=== PATIENT | male | born 1965 | race Caucasian/White ===

== ENCOUNTER 2025-05-27 07:13 | Emergency (ER) | payer BC, SELFPAY ==
--- OUTSIDE RECORDS SUMMARY | 2025-05-27 07:15 | XMS_ITS | Clinical Summary ---
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 Reason: New medication 450 Strip 2 11/21/19 16 Active aspirin (ECOTRIN) 81 mg enteric coated tablet Take 81 mg by mouth once daily with a meal. Active Insulin [place], Disposable, 29 gauge x 1/2Indications:Di abetes mellitus without complication (HC) For administering insulin at home. 200 Each 3 09/01/20 19 Active metFORMIN (GLUCOPHAGE) 500 mg tabletIndications: Diabetes mellitus without complication (HC),Diabetes mellitus without complication (HC) TAKE 3 TABLETS BY MOUTH IN THE MORNING AND 2 TABLETS IN THE EVENING WITH MEALS 450 Tablet 3 02/01/20 23 Active insulin aspart protamine-insulin aspart (NOVOLOG MIX) 100 unit/mL (70-30) penIndications:Sonia betes mellitus without complication (HC),Diabetes mellitus without complication (HC) INJECT 60 UNITS EVERY MORNING WITH BREAKFAST AND 60 UNITS WITH DINNER TDD 140 units 07/23/20 24 Active FreeStyle Angela 3 Plus Sensor for continuous blood glucose monitor (CGM)Indications: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 change every 15 days 6 Each 3 08/26/20 24 Active atorvastatin (LIPITOR) 40 mg tabletIndications: Hyperlipidemia, unspecified hyperlipidemia type TAKE 1 TABLET BY MOUTH EVERY DAY 90 Tablet 2 09/01/20 24 Active metoprolol succinate (TOPROL XL) 100 mg Sustained-Release tabletIndications: Essential hypertension TAKE 1 TABLET(100 MG) BY MOUTH EVERY DAY 90 Tablet 2 09/01/20 24 Active pen tirzepatide (Mounjaro) 10 mg/0.5 mL penIndications:Sonia niki 1.5, managed as type 2 (HC) Inject 10 mg subcutaneous once weekly. 12 Pen 3 02/25/20 25 Active Active Problems Problem Noted Date Diagnosed Date Diabetes mellitus due to und erlying condition with hyperosmolarity without coma, with long-term current use of insulin 07/13/2022 Adenomatous colon polyp 05/14/2019 Overview (05/14/2019): Colonoscopy 05/2019 polyp, repeat in 5 years Obesity, Class II, BMI 35-39.9 03/09/2019 Left flank pain 10/23/2018 Kidney stones 10/23/2018 Left ureteral stone 10/23/2018 Right ureteral stone 10/23/2018 YESSICA (acute kidney injury) 10/23/2018 Myopia 02/18/2007 Angioneurotic edema not elsewhere classified 12/2005 Essential hypertension 03/07/2004 Diabetes mellitus type II, c ontrolled, with no complications Overview (10/20/2006): hga1c, lipids,htn, Hyperlipidemia Immunizations Immunization Administration Dates Next Due COVID-19 vaccine (Moderna 100mcg/0.5mL) PF, MDV 03/09/2021,02/10/2021 COVID-19 vaccine (Moderna 50mcg/0.5mL) 12YO+ BIVALENT PF, MDV 10/01/2022 COVID-19 vaccine (Moderna Melvin petra 50mcg/0.25mL) PF, MDV 09/14/2021 Influenza A (H1N1), Inactivated 10/07/2009 Influenza A (H1N1), Inactiva michael (Age >=3 Years) 10/07/2009 Influenza, IIV3 (Age 6-35 mos) 08/20/2011 Influenza, IIV3 (Age >=3 years) 08/20/20 12,08/20/2011,2010,2008,10/09/2007 Influenza, IIV4 08/02/2021, 0,07/02/2018,2016,08/19/2015,09/23/2014 Influenza, RIV3 (Age =>18 Years) 10/11/2016 Influenza,CCIIV4 PRESERV FREE 09/03/2019 Measles 02/15/1977,01/27/1973 Pneumococcal Poly,23-Valent (Pneumovax) 11/05/2008 Polio Virus, Unspecified 07/12/1980 Rubella 01/27/1973 Td (Age >=7 Years) 03/09/2003 Tdap 08/04/2012 Family History Medical History Relation Name Comments Diabetes Father Diabetes Maternal Grandfather Cancer-breast Mother Genetic Other father - HTN, D M2~brother - DM~no CAD, no CA Diabetes Paternal Grandfather Diabetes Paternal Grandmother Relation Name Status Comments Father Maternal Grandfather Mother Other Paternal Grandfather Paternal Grandmother Social History Tobacco Use Types Packs/Day Years Used Date Smoking Tobacco: Never Smokeless Tobacco: Never Tobacco Cessation:Counseling Given: Yes Alcohol Use Standard Drinks/Week Comments Yes 4 (1 standard drink = 0.6 oz pur e alcohol) Alcoholic Drinks/day: PHQ-2 Answer Date Recorded PHQ-2 TOTAL SCORE 0 11/30/2020 Financial Resource Strain Answer Date R ecorded Difficulty of Paying Living Expenses Not on file 10/27/2021 Difficulty of Paying Living Expenses Not on file 10/27/2021 Sex and Gender Information Value Date Recorded Sex Assigned at Not on file Legal Sex Male 5:22 AM 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 Gender Identity Not on file Sexual Orientation Not on file 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 Not on file Not on file Not on fi le Obstetrics History Last Filed Vital Signs Vital Sign Reading Time Taken Comments Blood Pressure 124/80 02/24/2025 2:59 PM CDT Pulse 68 02/24/2025 2:59 PM CDT Temperature 37.8 C (100 F) 07/13/2022 1:53 PM CDT Respiratory Rate 16 02/24/2025 2:59 PM CDT Oxygen Saturation 96% 07/13/2022 1:53 PM CDT Inhaled Oxygen Concentration - - Weight 143.8 kg (317 lb) 02/24/2025 2:59 PM CDT Height 196.9 cm (6' 5.5) 07/13/2022 1:53 PM CDT Body Mass Index 37.11 07/13/2022 1:53 PM CDT Plan of Treatment Upcoming Encounters Date Type Department Care Team (Late st Contact Info) Description 06/22/2025 1:10 PM CDT Office Visit [facility] [address] [place] [address] Mack Blackmon MD [address] [place] [address] Health Maintenance Due Date Last Done Comments HIV for age 15-65 1980 Hepatitis C screening for ag e 18-79 1983 Hepatitis B series for 19+ ( 1 of 3 - 19+ 3-dose series) 1984 Pneumococcal series for age 50+ (2 of 2 - PCV) 11/05/2009 11/05/2008 Zoster (shingles) series for age 50+ (1 of 2) 2015 Depression screening for age 12+ 11/30/2021 11/30/2020, 07/02/2018, 04/10/2016 Tetanus booster 08/04/2022 08/04/2012, 03/09/2003 BMI (ht and wt on same day) for age 18+ 07/13/2023 07/13/2022, 03/09/2019, 10/30/2018, Additional history exists Lipids for age 45-75 07/31/2023 07/31/2018, 06/23/2015, 06/23/2015, Additional history exists Colonoscopy through age 75 05/13/202405/13, 05/13/2019, 05/13/2019 COVID-19 vaccine series ( season) 2024 10/01/2022, 09/14/2021, 03/09/2021, Additional history exists Influenza Vaccine (#1) 2025 , 09/23/2020, 09/03/2019, Additional history exists Medical Devices Implanted Type Area National Sales Trainer Device Identifier Shelf Expiration Date Model / Serial / Lot Stent Uret [id number] Contour - [id number] Implanted:Qty: 1 on 10/25/2018 by Santy Suazo MD at [facility] Left: Ureter [facility] [id number]# / / [id number] Stent Uret [id number] Contour - [id number] Implanted:Qty: 1 on 10/25/2018 by Santy Suazo MD at [facility] Right: Ureter [facility] [id number]# / / [id number] Procedures Procedure Name Priority Date/Time Associated Diagnosis Comments COLONOSCOPY SCREENING Routine 05/13/2019 8:41 AM CDT Encounter for colorectal cancer screening LIPID PANEL W REFLEX MEASURED LDL Routine 07/31/2018 2:41 PM CDT Hyperlipidemia, unspecified hyperlipidemia type from Last 3 Months or Most Recently Relevant to Health Maintenance Results * COLONOSCOPY SCREENING (05/13/2019 8:41 AM CDT) Tyrell Angulo DO GI PROCEDURE ORD Final Resul t * (ABNORMAL) LIPID PANEL W REFLEX MEASURED LDL (07/31/2018 2:41 PM CDT) CHOLESTEROL,TOTAL 158 100 - 199 mg/dL 07/31/2018 7:38 PM CDT [facility] TRIGLYCERIDES 257(H) <150 mg/dL 07/31/2018 7:38 PM CDT [facility] HDL CHOLESTEROL 30(L) >40 mg/dL 8 7:38 PM CDT [facility] NON-HDL CHOLESTEROL 128 <145 mg/dl 07/31/2018 7:38 PM CDT [facility] CHOL/HDL RATIO 5.27(H) <4.50 07/31/2018 7:38 PM CDT [facility] LDL CHOLESTEROL 77 <=130 mg/dL 07/31/2018 7:38 PM CDT [facility] PROVIDER ORDERED STATUS RANDOM 07/31/2018 7:38 PM CDT [facility] Blood BLOOD SPECIMEN / Unknown Venipuncture / Unknown 07/31/2018 2:41 PM CDT 07/31/2018 2:41 PM CDT us Pantera Burns MD CHEMISTRY Final Resu lt [facility] [address] [place] [address], [place] from Last 3 Months or Most Recently Relevant to Health Maintenance Insurance [facility] Advance Directives * Full Code (Latest Code Status on File) Date Activated Date Inactivated Comments 10/23/2018 7:16 PM 10/26/2018 3:20 PM Question Answer Comments Code Status Discussion: Discussed Care Teams Hazmat Technician Relationship Specialty Start Date End Date Pcp, No . PCP - General 03/27/21 Mack Blackmon MD [address] [place] [address] Endocrinology 01/30/23
[2025-05-27 07:25] VITALS: BP 161/107; PULSE 66; RESP 18; TEMP 36.8; O2SAT 99; BMI 38.1
--- NOTE | 2025-05-27 07:50 | ED.GENADULT ---
HPI - General Adult General Chief complaint: Allergic Reaction Stated complaint: allergic reaction on left side of face Time Seen by Provider: 05/27/25 07:50 Source: patient Mode of arrival: ambulatory Limitations: no limitations History of Present Illness HPI narrative: Morning 59-year-old male presents to the emergency department with a 2 day history of rash on the left jaw area, left scalp line and now into the left lip and along the left side of the tongue. No trauma or injury. Wonders if it is related to his to his tirzepitide medication. He has had some GI side effects to this. Mild headache noted, no vision changes or neurological changes. Feels an abnormal sensation in his ear but does believe he is still hearing normally. No difficulty swallowing. No history of immunocompromise status. Has not had the shingles vaccine. Does have a history of angioedema from lisinopril, states his symptoms do not feel similar. No prior history of similar symptoms. Tried taking some Benadryl with no improvement. Past medical history notable for type 2 diabetes, hyperlipidemia, hypertension. Allergy to lisinopril. Nonsmoker. ROS notable for the HEENT symptoms only, otherwise denies other generalized, HEENT, respiratory, GI or skin changes. Related Data Home Medications ?Medication ?Instructions ?Recorded ?Confirmed atorvastatin 40 mg tablet 40 mg PO DAILY 05/27/25 05/27/25 blood-glucose sensor (FreeStyle 05/27/25 05/27/25 Angela 3 Plus Sensor device) insulin aspar prot-insulin aspart subcut 05/27/25 100 unit/mL (70-30) subcutaneous pen metoprolol succinate 100 mg 100 mg PO DAILY 05/27/25 05/27/25 tablet,extended release 24 hr tirzepatide 10 mg/0.5 mL mg subcut 05/27/25 subcutaneous pen injector (Pkunlulu) Previous Rx's ?Medication ?Instructions ?Recorded valacyclovir 1 gram tablet 1,000 mg PO TID Shingles #20 tabs 05/27/25 Allergies Allergy/AdvReac Type Severity Reaction Status Date / Time lisinopril Allergy Severe angioedema Verified 05/27/25 07:21 PFSH PFS Social History Smoking Status: Never smoker How often do you have a drink containing alcohol: never AUDIT-C Alcohol total score: 0 Non-prescribed substance use: denies use Exam Const: Vital Signs, click to edit/add: Vital Signs - 24 hr 05/27/ 07:25 Temperature 98.2 F Pulse Rate [Left P ulse Oximeter] 66 Respiratory Rate 18 Blood Pressure [Ri ght Upper Arm] 161/107 H Pulse Oximetry 99 Oxygen Delivery Me thod Room Air Documenting provider has reviewed patient's vital signs: yes Common normals: no apparent distress General appearance: cooperative HENMT: Common normals: normocephalic and dentition normal Head and scalp: normocephalic Other: Vesicular distribution along left jawline, does not cross midline. Left lower, but not left upper lip are affected as well. Left edge of tongue affected, nothing on the right. Left vehicle mucosa affected as well. Remainder of oropharynx, posterior pharynx not affected. The rash creeps up along the left jawline and just above the left ear, mild swelling of the ear canal but normal TMs. Right side unaffected. Eye not affected. Nose not affected. Normal nares. Eye: Common normals: conjunctivae normal General eye: normal appearance of both eyes Conjunctiva: conjunctiva(e) normal Neck & C-Spine: Common normals: full ROM, no lymphadenopathy and no meningeal signs General: normal visual inspection Resp: Common normals: normal respiratory effort, no use of accessory muscles and clear to auscultation bilaterally Effort & inspection: able to speak in complete sentences Auscultation: clear to auscultation bilaterally Cardio: Common normals: regular rate, regular rhythm, S1 normal heart sound, S2 normal heart sound and no murmurs Rate: regular rate Rhythm: regular rhythm Heart sounds: S1 normal and S2 normal Neuro: Meningeal signs: no meningeal signs Psych: Common normals: speech normal Activity/motor behavior: appropriate eye contact Speech: normal speech Mood and affect: euthymic mood Insight: insight good Judgement: judgment good Skin: Narrative: This ocular rash on the left jawline, oral cavity and small portion of the scalp as described above. No other affected areas Course Course ED Course: 59-year-old male with painful rash on left jawline, consistent with classical V3 branch of trigeminal nerve distribution. No ocular involvement. Classic for shingles. Allergic reaction, viral stomatitis, angioedema, dermatitis were all considered as alternative diagnoses. Classic nerve distribution is most consistent with shingles. No further testing is recommended. Counseled patient on rationale and medical management. Will start Valcyclovir 1000 mg p.o. x1, continue for 1 week t.i.d. Discussed htmq-dtt-pfwulld pain medication 1000 mg of Tylenol every 6 hours and/or 600 mg of ibuprofen every 6 hours. 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 Symptoms due to to improve within 48 hours of starting bowel psy clear. Encephalitis, meningitis and other complications are quite rare but if there stroke-like symptoms, high fever, severe headache, airway compromise, he should return to the ED right away. He verbalizes understanding and agreement. Okay to continue his typical medications otherwise. Warned on the risk of post herpetic neuralgia, primary care follow-up if not improving in 5 days. Vital Signs Vital signs: Initial Vital Signs Temperature 98.2 F 05/27/25 07:25 Temperature Source Temporal Artery Scan 05/27/25 07:25 Pulse Rate 66 05/27/25 07:25 Pulse Rhythm Regular 05/27/25 07:25 Respiratory Rate 18 05/27/25 07:25 Blood Pressure 161/107 H 05/27/25 07:25 Blood Pressure Mean 125 H 05/27/25 07:25 Blood Pressure Position Sitting 05/27/25 07:25 Pulse Oximetry 99 05/27/25 07:25 Oxygen Delivery Method Room Air 05/27/25 07:25 Vital Signs Temperature 98.2 F 05/27/25 07:25 Pulse Rate 66 05/27/25 07:25 Respiratory Rate 18 05/27/25 07:25 Blood Pressure 161/107 H 05/27/25 07:25 Pulse Oximetry 99 05/27/25 07:25 Oxygen Delivery Method Room Air 05/27/25 07:25 Temperature 98.2 F 05/27/25 07:25 Pulse Rate 66 05/27/25 07:25 Respiratory Rate 18 05/27/25 07:25 Blood Pressure 161/107 H 05/27/25 07:25 Pulse Oximetry 99 05/27/25 07:25 Oxygen Delivery Method Room Air 05/27/25 07:25 Discharge Plan Discharge Clinical Impression: Shingles Patient Disposition: Home, Self-Care Condition: Stable Instructions: Shingles (ED) Additional Instructions: As we discussed, your rash is classically consistent with shingles, also known as reactivation of the herpes zoster virus. Unfortunately, this is quite common. Years does follow a classic pattern of distribution of the 3rd branch of the trigeminal nerve on the left side. I have started you on an antiviral medicine, valacyclovir. He will continue taking this 3 times daily for the next week. This will dramatically reduce the chance of post herpetic neuralgia, also known as per minute pain in the area of shingles. It also reduces contagiousness and helps the lesions crust over more quickly and within 24-48 hours, often makes the pain much better. Remember to avoid young children under the age of to and women for the next few days until the antiviral medicine has taken hold and all of the lesions are crusted over. For pain, I recommend Tylenol 1000 mg every 6 hours and or ibuprofen 600 mg every 6 hours. You may use 50 mg of Benadryl at bedtime +/-10 mg of melatonin to help you sleep as well. For most, pain is much better after 24 hours on the valacyclovir, but it can take up to 48 hours. Your next dose of the valacyclovir should be given at around 2:00 p.m, then again at 10:00 p.m.. It is okay to alter the dosing by 1-2 hours if needed to accommodate your typical sleep schedule. You should return to the emergency department if you have loss of sight, stroke-like symptoms, severe high fever or severe headache. Activity Level: No Restrictions Discharge Diet: Regular Prescriptions: New valacyclovir 1 gram tablet 1,000 mg PO TID Qty: 20 0RF No Action atorvastatin 40 mg tablet 40 mg PO DAILY metoprolol succinate 100 mg tablet extended release 24 hr 100 mg PO DAILY insulin asp prt-insulin aspart 100 unit/mL (70-30) insulin pen SUBCUT Patient Comments: INJECT 100 UNITS EVERY MORNING WITH BREAKFAST AND 100 UNITS WITH DINNER (DME) [employer] Angela 3 Plus Sensor Device MISCELLANEOUS Patient Comments: APPLY A NEW SENSOR EVERY 15 DAYS Mounjaro 10 mg/0.5 mL pen injector SUBCUT Patient Comments: [NO ORIGINAL SIG] Stand Alone Forms: MyHealth Info Instructions
[2025-05-27] MEDS: VALACYCLOVIR HCL 500 MG TABLET 1000 MG PO (07:52)
== END 2025-05-27 08:02 | disposition home or self-care (01) ==
PROVIDERS: Emergency Provider Family Medicine
DX: B02.9 Zoster without complications (principal)
CPT/HCPCS: 99283; A9270